=== PATIENT | female | born 1940 | race Two or more races ===

== ENCOUNTER 2018-11-28 16:10 | Emergency (ER) | payer OTHER ==
[~2018-11-28] VITALS: Ht 157.5 cm; Wt 55.8 kg
[2018-11-28] MEDS ORDERED: GLIMEPIRIDE2 MG (16:18)
[2018-11-28] MEDS ORDERED: VERAPAMIL HCL40 MG (16:18)
[2018-11-28] MEDS ORDERED: ATORVASTATIN CA10 MG (16:18)
== END 2018-11-28 18:12 | disposition home or self-care (01) ==
LOC: ER 16:10
DX: S60.221A Contusion of right hand, initial encounter (principal); W18.39XA Other fall on same level, initial encounter; Y93.89 Activity, other specified; Y92.59 Other trade areas as the place of occurrence of the external cause; Y99.8 Other external cause status